=== PATIENT | male | born 1995 | race Caucasian/White ===

== ENCOUNTER 2022-12-29 04:55 | Emergency (ER) | payer SELFPAY ==
[~2022-12-29] VITALS: Ht 172.7 cm; Wt 72.6 kg
[2022-12-29 04:59] VITALS: BP 142/88
[2022-12-29 05:25] VITALS: BP 142/88
--- NOTE | 2022-12-29 05:25 | NUR ---
Patient discharged with v/s stable. Written and verbal after care instructions given and explained. Patient verbalized understanding. Police with in custody. All questions addressed prior to discharge. Advised to follow up with PMD.
--- NOTE | 2022-12-29 05:25 | NUR ---
PT SEEN AND EVALUATED BY ER
== END 2022-12-29 05:25 ==
LOC: MED 04:55
DX: V49.88XA Car occupant (driver) (passenger) injured in other specified transport accidents, initial encounter; Y93.89 Activity, other specified; Y92.89 Other specified places as the place of occurrence of the external cause; Y99.8 Other external cause status
CPT/HCPCS: 99283